=== PATIENT | female | born 1995 | race Caucasian/White ===

== ENCOUNTER 2021-04-06 20:14 | Emergency (ER) | payer OTHER ==
[2021-04-06 20:52] LABS: HEMOGLOBIN 11.6 gm/dl (12.3-15.3); RED BLOOD COUNT 4.82 M/UL (4.00-5.10); WHITE BLOOD COUNT 7.1 K/UL (4.5-11.0)
[2021-04-06 21:15] LABS: BUN/CREATININE RATIO 16 (0-10)
== END 2021-04-06 22:28 | disposition home or self-care (01) ==
LOC: ER1 20:14
PROVIDERS: Physician Assistant
DX: O20.0 Threatened abortion (principal); Z3A.01 Less than 8 weeks gestation of pregnancy
CPT/HCPCS: 80053; 81001; 83690; 84702; 85025; 86850; 86900; 86901; 87086; 99284

== ENCOUNTER 2022-03-21 16:51 | Inpatient (IN) | payer OTHER ==
[~2022-03-21] VITALS: Ht 172.7 cm; Wt 86.2 kg
[2022-03-21 18:39] LABS: HEMOGLOBIN 12.4 gm/dl (12.3-15.3); RED BLOOD COUNT 4.6 M/UL (4.00-5.10); WHITE BLOOD COUNT 11.4 K/UL (4.5-11.0)
[2022-03-22] MEDS ORDERED: IBUPROFEN600 MG PO (10:37)
[2022-03-22] MEDS ORDERED: COLACE100 MG PO (10:37)
[2022-03-22] MEDS ORDERED: FERROUS SULFAT325 MG PO (10:37)
[2022-03-23 06:20] LABS: HEMOGLOBIN 11.7 gm/dl (12.3-15.3)
== END 2022-03-23 09:31 | disposition home or self-care (01) | DRG 807 ==
LOC: GENOP 16:51 → OB 17:18
PROVIDERS: ADMIT Obstetrics & Gynecology
PROC: 10E0XZZ Delivery of Products of Conception, External Approach (ICD-10-PCS; principal; 2022-03-22)
PROC: 0KQM0ZZ Repair Perineum Muscle, Open Approach (ICD-10-PCS; 2022-03-22)
PROC: 10907ZC Drainage of Amniotic Fluid, Therapeutic from Products of Conception, Via Natural or Artificial Opening (ICD-10-PCS; 2022-03-22)
PROC: 3E033VJ Introduction of Other Hormone into Peripheral Vein, Percutaneous Approach (ICD-10-PCS; 2022-03-22)
PROC: 4A1H7CZ Monitoring of Products of Conception, Cardiac Rate, Via Natural or Artificial Opening (ICD-10-PCS; 2022-03-22)
PROC: 10H073Z Insertion of Monitoring Electrode into Products of Conception, Via Natural or Artificial Opening (ICD-10-PCS; 2022-03-22)
PROC: 0UH97HZ Insertion of Contraceptive Device into Uterus, Via Natural or Artificial Opening (ICD-10-PCS; 2022-03-22)
DX: O70.1 Second degree perineal laceration during delivery (principal); Z37.0 Single live birth; Z28.310 Unvaccinated for COVID-19; Z82.49 Family history of ischemic heart disease and other diseases of the circulatory system; Z83.3 Family history of diabetes mellitus; Z80.8 Family history of malignant neoplasm of other organs or systems; Z3A.39 39 weeks gestation of pregnancy
CPT/HCPCS: 36415; 81001; 85014; 85018; 85025; 90715; J2590